=== PATIENT | female | born 1980 | race Caucasian/White ===

== ENCOUNTER 2020-09-30 21:30 | Emergency (ER) | payer OTHER, SELFPAY ==
--- NOTE | ~2020-09-30 | XR_ITS ---
EXAMINATION: XR wrist RT min 3V INDICATION: Right wrist pain, initial encounter TECHNIQUE: Four views of the right wrist are obtained. COMPARISON: 12/19/2018 FINDINGS: There is an acute, traumatic, closed, oblique fracture of the distal ulna. The fracture zapata s not appear to extend to the distal articular surface. Soft tissue swelling surrounds the fracture. No additional acute osseous abnormality is identified. IMPRESSION: 1. Acute fracture of the distal ulna. Reviewed, dictated and finalized at location A. GER VIDEO
[2020-09-30 21:31] VITALS: BP 130/94; PULSE 84; RESP 16; TEMP 36.9; O2SAT 100
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
--- NOTE | 2020-09-30 22:04 | PC.NURSE ---
right short arm volnar splint applied, pt nessa well. <3 sec cap refill after splint applied.
[2020-09-30 23:41] VITALS: BP 126/79; PULSE 87; RESP 16; TEMP 36.7; O2SAT 100
== END 2020-09-30 23:42 | disposition home or self-care (01) ==
PROVIDERS: Emergency Provider Emergency Medicine; PCP Emergency Medicine
DX: T40.411A Poisoning by fentanyl or fentanyl analogs, accidental (unintentional), initial encounter (principal); S52.691A Other fracture of lower end of right ulna, initial encounter for closed fracture; Y04.2XXA Assault by strike against or bumped into by another person, initial encounter
CPT/HCPCS: 29125; 73110; 99284

== ENCOUNTER 2020-10-04 22:07 | Emergency (ER) | payer OTHER, SELFPAY ==
[2020-10-04 22:07] VITALS: BP 124/90; PULSE 104; RESP 18; TEMP 36.8; O2SAT 100
--- NOTE | 2020-10-04 22:12 | ED_ITS ---
HPI - Overdose General Chief Complaint: Overdose Stated Complaint: OD-Fentanyl Time Seen by Provider: 10/04/20 22:12 Source: patient, EMS and RN notes reviewed History of Present Illness HPI Narrative: 40-year-old female presents to EMS for fentanyl overdose. Samara ent was found minimally responsive at a local motel, shallow respirations. Patient was given Narcan intranasally with response. Patient admits to snorting fentanyl. Denies any pain at this time. No suicidal or homicidal ideation. Related Data Allergies Allergy/AdvReac Type Severity Reaction Status Date / Time No Known Allergies Allergy Unverified 08/13/19 17:51 Review of Systems Review of Systems: Narrative: CONSTITUTIONAL: Denies fever, chills, or sweats. EYES: Denies visual changes, redness, or discharge. ENT: Denies rhinorrhea, congestion, sore throat, or otalgia. CARDIOVASCULAR: Denies chest pain, palpitations, or edema. RESPIRATORY: Denies cough or dyspnea. GASTROINTESTINAL: Denies abdominal pain, nausea, vomiting, or diarrhea. GENITOURINARY: Denies dysuria or hematuria. SKIN: Denies rash or itching. MUSCULOSKELETAL: Denies back pain, joint pain, or myalgia. NEUROLOGIC: Denies headache, numbness, dizziness, or weakness. PSYCHIATRIC: Denies anxiety or depression. Denies suicidal and homicidal ideati on All systems reviewed & are unremarkable except as noted in HPI and below (ROS) PMFSH Past Medical History Medical History Healthy adult Social History Social History Substance use: current Substance use type: opiates Other substance usage details: occasional Exam Narrative: Exam Narrative: GENERAL: Well-appearing, well-nourished, and in no acute distress. HEAD: Normocephalic, atraumatic. EYES: PERRLA and EOMI. ENT: Nares clear, no rhinorrhea or epistaxis. Mucous membranes moist. NECK: Supple. CHEST: Clear to auscultation. No respiratory distress. HEART: Tachycardia no murmur heard. Normal peripheral pulses. ABDOMEN: Soft, nontender, nondistended, normal active bowel sounds. EXTREMITIES: Normal range of motion. No edema. SKIN: Warm, dry, no rash. NEURO: No focal deficits. Alert and oriented x3. PSYCH: Normal mood and affect. Course Reevaluation(s) Reevaluation #1: 8812 -reevaluated patient, no new complaints. Counseled patient to discontinue use of fentanyl. Counseled patient to follow-up with her medical provider within 1 week. Vital Signs Vital signs: Vital Signs Temperature 36.8 C 10/04/20 22:07 Pulse Rate 104 H 10/04/20 22:07 Respiratory Rate 18 10/04/20 22:07 Blood Pressure 124/90 10/04/20 22:07 Pulse Oximetry 100 10/04/20 22:07 Temperature 36.8 C 10/04/20 22:07 Pulse Rate 91 10/05/20 00:20 Respiratory Rate 18 10/05/20 00:20 Blood Pressure 127/86 10/05/20 00:20 Pulse Oximetry 95 10/05/20 00:20 MDM - Overdose Medical Records Attestation: I reviewed the patient's medical records. Discharge Plan Discharge Clinical Impression: Opioid overdose Patient Disposition: Home, Self-Care Condition: Stable Instructions: Adult Overdose (ED) Follow-up/Referrals: Antoine Santana MD [Physician] - Time of Disposition: 23:44
[2020-10-05 00:20] VITALS: BP 127/86; PULSE 91; RESP 18; O2SAT 95
== END 2020-10-05 00:23 | disposition home or self-care (01) ==
PROVIDERS: Emergency Provider Emergency Medicine; PCP Emergency Medicine
DX: T40.411A Poisoning by fentanyl or fentanyl analogs, accidental (unintentional), initial encounter (principal)
CPT/HCPCS: 99281

== ENCOUNTER 2022-03-28 10:02 | Emergency (ER) | payer OTHER, SELFPAY ==
[2022-03-28 10:13] VITALS: BP 140/99; PULSE 95; RESP 16; TEMP 36.9; O2SAT 100
--- NOTE | 2022-03-28 11:01 | PC.NURSE ---
patient states that she cut her right pinky finger last night around 2200 while doing dishes. states she cleaned it with peroxide and placed a bandaid. states bled a lot. denies blood thinners. no active bleeding at this time. states she took a vicoprofen around 0730 this morning
--- NOTE | 2022-03-28 12:07 | ED.WOUNDLAC ---
HPI - Wound/Laceration General Chief Complaint: Wound/Laceration Stated Complaint: lac to right pinky Time Seen by Provider: 03/28/22 11:21 Source: patient Mode of arrival: ambulatory History of Present Illness HPI narrative: 41 y/o female presents to the ER today for complaints of laceration to right 5th finger. When I came in the room. She was leaning over in the chair, eyes closed and drooling. I had to say her name loudly several times to arouse her. She appears to be under the influence of opiates. She says that she took a pain pill prior to coming to the ER. She falls asleep a few times while I'm getting her history today. She has a small laceration to the finger that happened yesterday evening from a peice of broken glass. It is open to air and is not bleeding currently. Related Data Allergies Allergy/AdvReac Type Severity Reaction Status Date / Time No Known Allergies Allergy Unverified 03/28/22 10:59 Review of Systems Constitutional: Constitutional: Denies chills and Denies fever(s) ENT: Denies dizziness Cardiovascular: Cardiovascular: Reports no additional cardiovascular complaints and Denies chest pain Respiratory: Respiratory: Denies dyspnea Gastrointestinal: Gastrointestinal: Denies nausea and Denies vomiting Genitourinary: Genitourinary: Reports no additional female genitourinary complaints Musculoskeletal: Musculoskeletal: Reports no additional musculoskeletal complaints Integumentary/Breasts: Skin/Breast: Reports as per HPI Neurologic: Reports as per HPI Psychiatric: Psychiatric: Reports no additional psychiatric complaints Endocrine: Endocrine: Reports no additional endocrine complaints Hematologic/Lymphatic: Hematologic/Lymphatic: Reports no additional hematologic/lymphatic complaints Allergic/Immunologic: Allergic/Immunologic: Reports no additional allergic/immunologic complaints [facility] Past Medical History Medical History Healthy adult Social History Social History Substance use: current Substance use type: opiates Other substance usage details: occasional Exam Const: General: no acute distress Other: very drowsy, arouses to voice, under the influence of substance, admits to opiates HENMT: Head: normal to inspection Eyes: Conjunctivae: conjunctivae normal and conjunctival abnormality Pupils: Equal, round and reactive pupils present Neck: Neck: normal visual inspection Chest: Chest palpation & inspection: normal inspection of the chest Resp: Effort & Inspection: normal respiratory effort Auscultation: clear to auscultation bilaterally Cardio: Rate: regular rate GI: GI Palp: Yes Soft to palpation, No Tenderness to palpation present (GI) and No Guarding due to palpation present (GI) Back/Spine/Pelvis: Back: no CVA tenderness Skin: General skin exam: normal color Other: small superficial lac to right 5th finger not requiring sutures or repair Neuro: General: patient oriented x3 and moves all extremities Extrem: General: normal to inspection and no edema Course Course Emergency Course: Pt is wanting to sign out AMA. She is refusing Narcan. She is signing out AMA Vital Signs Vital signs: Vital Signs Temperature 36.9 C 03/28/22 10:13 Pulse Rate 95 03/28/22 10:13 Respiratory Rate 16 03/28/22 10:13 Blood Pressure 140/99 H 03/28/22 10:13 Pulse Oximetry 100 03/28/22 10:13 Temperature 36.9 C 03/28/22 10:13 Pulse Rate 95 03/28/22 10:13 Respiratory Rate 16 03/28/22 10:13 Blood Pressure 140/99 H 03/28/22 10:13 Pulse Oximetry 100 03/28/22 10:13 MDM - Wound/Laceration Differential Diagnosis Differential diagnosis: Likely laceration, abscess and abrasion Discharge Plan Discharge Clinical Impression: Laceration, Opiate misuse Patient Disposition: Left Against Medical Advice Condition: Stable Follow-up/
--- NOTE | 2022-03-28 12:18 | PC.NURSE ---
during ERP assessment, she states that patient was sitting up in the chair drooling and falling asleep. requesting patient be placed on monitor technician and given narcan. patient aware and taken to room 6 at this time
[2022-03-28 12:20] VITALS: BP 141/92; PULSE 78; RESP 16; O2SAT 98
--- NOTE | 2022-03-28 12:28 | PC.NURSE ---
went in to place IV and attain Labs. pt unwilling to have labs, drawn, IV placed. pt refused Narcan AMA form signed and placed in chart provider and public health professor aware pt has left from the dept
== END 2022-03-28 12:33 | disposition left against medical advice (07) ==
PROVIDERS: Emergency Provider Nurse Practitioner Family; PCP Emergency Medicine
DX: S61.216A Laceration without foreign body of right little finger without damage to nail, initial encounter (principal); F11.90 Opioid use, unspecified, uncomplicated; W25.XXXA Contact with sharp glass, initial encounter
CPT/HCPCS: 99284

== ENCOUNTER 2022-04-03 07:57 | Emergency (ER) | payer OTHER, SELFPAY ==
--- NOTE | ~2022-04-03 | XR_ITS ---
EXAMINATION: XR hand RT min 3V DATE: 04/03/2022 09:10 INDICATION: Right hand dog bite. TECHNIQUE: 3 views of right hand were obtained. COMPARISON: Right wrist radiographs 09/30/2020 FINDINGS: There is a comminuted fracture of neck of second metacarpal. The main distal fracture fragm ent demonstrates 2 mm ulnar displacement. There is a laceration in this area with soft tissue swellin g. There is an old healed fracture of distal ulna. Joint spaces are normal. IMPRESSION: 1. Comminuted fracture of neck of second metacarpal. Reviewed, dictated and finalized at location B.
[2022-04-03 08:01] VITALS: BP 141/85; PULSE 112; RESP 18; TEMP 37.1; O2SAT 99
--- NOTE | 2022-04-03 08:51 | ED.ANIMALBIT ---
HPI - Animal Bite General Chief Complaint: Animal Bite <Rikki Alvarez APRN - Last Filed: 04/03/22 10:09> Stated Complaint: dog bite (hand) <Rikki Alvarez APRN - Last Filed: 04/03/22 10:09> Time Seen by Provider: 04/03/22 08:44 <Rikki Alvarez APRN - Last Filed: 04/03/22 10:09> History of Present Illness HPI narrative: 41-year-old female presents to the emergency room for evaluation of a dog bite to the right hand. Patient states that a known dog bit her right hand. Patient states the attack was unprovoked. Patient states the dog is up-to-date on its rabies status. <Rikki Alvarez APRN - Last Filed: 04/03/22 10:09> Related Data Allergies/Adverse Reactions: Allergies Allergy/AdvReac Type Severity Reaction Status Date / Time No Known Allergies Allergy Verified 04/03/22 08:10 <Rikki Alvarez APRN - Last Filed: 04/03/22 10:09> Review of Systems Review of Systems: CONSTITUTIONAL: Denies fever, chills, or sweats. EYES: Denies visual changes, redness, or discharge. ENT: Denies rhinorrhea, congestion, sore throat, or otalgia. CARDIOVASCULAR: Denies chest pain, palpitations, or edema. RESPIRATORY: Denies cough or dyspnea. GASTROINTESTINAL: Denies abdominal pain, nausea, vomiting, or diarrhea. GENITOURINARY: Denies dysuria or hematuria. SKIN: Reports bite wounds to right hand MUSCULOSKELETAL: Reports pain to right hand NEUROLOGIC: Denies headache, numbness, dizziness, or weakness. PSYCHIATRIC: Denies anxiety or depression. <Rikki Alvarez APRN - Last Filed: 04/03/22 10:09> [facility] Past Medical History Medical History: Medical History Healthy adult <Rikki Alvarez APRN - Last Filed: 04/03/22 10:09> Social History Social History: Social History Substance use: current Substance use type: opiates Other substance usage details: occasional <Rikki Alvarez APRN - Last Filed: 04/03/22 10:09> Exam Narrative: GENERAL: Well-appearing, well-nourished, and in no acute distress. HEAD: Normocephalic, atraumatic. EYES: PERRLA and EOMI. CHEST: Clear to auscultation. No respiratory distress. No wheezes rales or rhonchi HEART: Regular rate and rhythm. No murmur heard. Normal peripheral pulses. ABDOMEN: Soft, nontender, nondistended, normal active bowel sounds. EXTREMITIES: Right hand: 3 puncture wounds to the dorsum, 1 puncture wound to the palmar side, soft tissue swelling and erythema surrounding bites; +TTP to 2nd metacarpal SKIN: Warm, dry, no rash. NEURO: No focal deficits. Alert and oriented x3. PSYCH: Normal mood and affect. <Rikki Alvarez, LI - Last Filed: 04/03/22 10:09> Course [employer]/PA Physician Supervision For this patient encounter, I reviewed the [employer] or PA documentation, treatment plan, and medical decision making; and I had [id number] time with this patient. <Tom Bergman MD - Last Filed: 04/03/22 09:24> Vital Signs Vital signs: Vital Signs Temperature 37.1 C 04/03/22 08:01 Pulse Rate 112 H 04/03/22 08:01 Respiratory Rate 18 04/03/22 08:01 Blood Pressure 141/85 H 04/03/22 08:01 Pulse Oximetry 99 04/03/22 08:01 Temperature 37.1 C 04/03/22 08:01 Pulse Rate 89 04/03/22 09:35 Respiratory Rate 20 04/03/22 09:35 Blood Pressure 141/93 H 04/03/22 09:35 Pulse Oximetry 100 04/03/22 09:35 <Rikki Alvarez APRN - Last Filed: 04/03/22 10:09> Vital Signs Temperature 37.1 C 04/03/22 08:01 Pulse Rate 112 H 04/03/22 08:01 Respiratory Rate 18 04/03/22 08:01 Blood Pressure 141/85 H 04/03/22 08:01 Pulse Oximetry 99 04/03/22 08:01 Temperature 37.1 C 04/03/22 08:01 Pulse Rate 89 04/03/22 09:35 Respiratory Rate 20 04/03/22 09:35 Blood Pressure 141/93 H 04/03/22 09:35 Pulse Oximetry 100 04/03/22 09:35 <Tom Bergman MD - Last Filed: 04/03/22 09:24> MDM - Animal
[2022-04-03] MEDS: KETOROLAC (*BKC) 60 MG/2 ML VIAL IM (08:52)
[2022-04-03] MEDS: ONDANSETRON INJ 4 MG/2 ML VIAL IV PUSH (09:30)
[2022-04-03] MEDS: MORPHINE SULFATE (*CRX) 4 MG/ML INJ IV PUSH (09:30)
[2022-04-03 09:35] VITALS: BP 141/93; PULSE 89; RESP 20; O2SAT 100
[2022-04-03] MEDS: ceFAZolin 2 GM/D5W 50 ML 2 GM/50 ML BAG IVPB (10:00)
[2022-04-03 10:02] LABS: Basophils Absolute Auto 0.1 K/mm3 (0.0-0.1); Basophils Percent Auto 0.8 % (0.2-1.2); Eosinophils Absolute Auto 0.1 K/mm3 (0-0.3); Eosinophils Percent Auto 1.3 % (0-4.4); Hematocrit 42.6 % (37.0-47.0); Hemoglobin 14.3 g/dL (12.0-15.0); Immature Granulocyte Absolute 0.01 K/mm3 (0.00-0.031); Immature Granulocyte Percent A 0.2 % (0-0.5); Lymphocytes Absolute Auto 1.15 K/mm3 (0.9-3.2); Lymphocytes Percent Auto 18.1 % (18.3-44.2); Mean Corpuscular HGB Conc 33.6 g/dl (32-36); Mean Corpuscular Hemoglobin 30.7 pg (26-34); Mean Corpuscular Volume 91.4 fl (80-100); Mean Platelet Volume 11.5 fl (7.4-10.4); Monocytes Absolute Auto 0.8 K/mm3 (0.1-0.6); Monocytes Percent Auto 11.9 % (2.6-8.5); Neutrophils Absolute Auto 4.3 K/mm3 (1.3-6.7); Neutrophils Percent Auto 67.7 % (45.5-73.1); Platelet Count Result 293 k/mm3 (150-375); Red Blood Count 4.66 M/mm3 (4.2-5.4); Red Cell Distribution Width 12.4 % (11.5-14.5); White Blood Count 6.4 K/mm3 (4.5-10.0)
[2022-04-03 10:07] LABS: Alanine Aminotransferase 34 U/L (4-35); Albumin Level 4.1 g/dL (3.5-5.1); Alkaline Phosphatase 79 U/L (38-126); Anion Gap 7 mmol/L (8-16); Aspartate Amino Transferase 37 U/L (14-36); Bilirubin,Total 0.3 mg/dL (0.2-1.3); Blood Urea Nitrogen 7 mg/dL (7-17); Calcium 8.9 mg/dL (8.4-10.2); Carbon Dioxide 26 mmol/L (22-30); Chloride 107 mmol/L (98-107); Estimated CRCL calculation 77 ml/min; Estimated Glomerular Filt Rate > 60; Glucose 107 mg/dL (65-110); Potassium 3.6 mmol/L (3.4-5.0); Sodium 140 mmol/L (137-145)
== END 2022-04-03 10:55 | disposition home or self-care (01) ==
PROVIDERS: Emergency Provider Nurse Practitioner Family
DX: S62.330A Displaced fracture of neck of second metacarpal bone, right hand, initial encounter for closed fracture (principal); S61.451A Open bite of right hand, initial encounter; W54.0XXA Bitten by dog, initial encounter
CPT/HCPCS: 29125; 36415; 73130; 80053; 85025; 96365; 96372; 96375; 99284; J0690; J1885; J2270; J2405

== ENCOUNTER 2022-04-11 01:41 | Day surgery (SDC) | payer OTHER, SELFPAY ==
[2022-04-10 08:09] VITALS: BMI 20.7
--- NOTE | 2022-04-10 08:16 | SUR.PREOP ---
Report to the Outpatient Waiting Room, entrance under the green pavilion located off [facility], at time 830 on date 04/11 OR Time: 1030. - You and your visitor will be asked a series of questions to screen for COVID 19 for your protection. - Only one visitor is allowed at this time. - The patient visitor is requested to leave or wait in car when not with patient. - A mask is required within the hospital. Patients may have clear liquids (water, carbonated beverages, clear teas, apple juice) until 3 hours prior to surgery with a maximum of 20 ounces. - No food from midnight until time of surgery Take the following medications with a SIP of water the morning of surgery: antibiotic as prescribed Medications to discontinue per physician ___NA Date to take last dose__NA Please no make-up, nail marshallese, hairspray, perfume, deodorant, or body powder the day of surgery. No jewelry (including any body piercings) or valuables the day of surgery, leave them at home. Please take a shower or bath the night before, or the morning of, surgery with an antibacterial soap. Wear comfortable, loose fitting clothing. Children are encouraged to wear pajamas. - Jewelry must be removed prior to entering the operating room. Rings and piercings that are not removed may be cut off. - The hospital will not accept responsibility for valuables. - Please leave all valuables, including medications, at home the day of surgery. If you are going home after surgery, a licensed septic pump truck driver must drive you home. - NO public transportation without another adult. - We recommend that an adult stay with you for 24 hours following discharge. - We also recommend that you do not drive, make important decision, drink alcoholic beverages, or take any drugs that were not prescribed by your health care provider for at least 24 hours after your discharge time. Follow any additional instructions given to you from your surgeon. If you or anyone in your household have experienced Covid symptoms in the past week, please notify your surgeon or the nurse liaison at the phone number below for possible testing. Telephone instructions given to patient and asked if any additional questions and then verbalized understanding. Patient advised to call surgeon office or pre surgery nurse liaison [phone] if any additional questions.
[2022-04-11] VITALS (8 sets, daily range): BP systolic 104–145; BP diastolic 68–96; PULSE 64–96; RESP 14–20; TEMP 36.2; O2SAT 100
--- NOTE | ~2022-04-11 | XR_ITS ---
EXAMINATION: XR surgery orthopedic DATE: 04/11/2022 12:12 INDICATION: Right second metacarpal fracture TECHNIQUE: 3 fluoroscopic images of the right hand were obtained during procedure performed by Dr. Cardona. Radiologist was not present for the imaging or procedure. The amount of fluoroscopy time used du ring this procedure was 2.0 minutes. COMPARISON: None. FINDINGS: Interval reduction and fixation of a mildly comminuted fractures at the distal neck of the right seco nd metacarpal. The fracture is fixed with a proximal to distal directed pin which is anchored dorsall y at the proximal metaphysis. Alignment appears near-anatomic. No other fractures identified. Joint s paces are normal. IMPRESSION: 1. Near-anatomic alignment post reduction and pin fixation of a mildly comminuted fracture at the dis manolo neck of the right fifth metacarpal. Reviewed, dictated and finalized at location A. IMPRESSION: 1. Near-anatomic alignment post reduction and pin fixation of a mildly comminut ed fracture at the distal neck of the right fifth metacarpal.
--- NOTE | 2022-04-11 07:15 | WPDHPUPDATE1 ---
History and Physical Update Update Date/Time: 04/11/22 07:15 History and Physical has been reviewed, including an updated exam of the patient. There are NO changes in the patient's condition. Risks, benefits, and alternatives have been discussed and questions answered. Patient agrees to proceed with procedure.
--- NOTE | 2022-04-11 09:18 | P.PNAN_ITS ---
Anes - Initial Pre Proc Eval Procedure: Operation Date: 04/11/22 10:30 Proposed Procedures p Closed, Possible Open Reduction Internal Fixation Right Second Metacarpal - Dima Slater MD Date/Time: 04/11/22 09:18 Surgeon: Dima Slater MD Pre Op Diagnosis: right 2nd metacarpal fx Patient Data Age: 41 Gender: F Height: 1.7 m Weight: 60 kg Allergies Allergy/AdvReac Type Severity Reaction Status Date / Time No Known Allergies Allergy Verified 04/11/22 09:03 Home Medications Medication Instructions Recorded Confirmed Type amoxicillin-pot clavulanate 1 tablet PO Q12H #14 tablet 04/03/22 04/11/22 Rx Patient hx anesthesia problems: none Family hx anesthesia problems: none Results Review: All pre-operative results and documents have been reviewed as part of the pre-operative evaluation. [facility], [facility] Past Medical History Medical History Healthy adult Smoker Surgical History Surgical History (Updated 04/11/22 @ 09:20 by Chester Marquez MD) H/O breast augmentation Social History Social History Years smoked: 4 Smoking status: Light tobacco smoker Tobacco type: cigarettes Substance use: current Substance use type: opiates Other substance usage details: occasional Living arrangements: alone Spiritual care concerns: No Anes - Eval Final PreProcedure Day of Procedure 04/11/22 09:18 Patient weight: normal Heart: regular rate and rhythm Lungs: clear to auscultation Airway: Mallampati scale class II Neurological: alert and oriented Last oral intake: >/= 8 hours ASA classification: II Emergent: no Anesthetic plan: proceed Anesthesia type and monitoring: general LMA and standard monitoring Results Review: All pre-operative results and documents have been reviewed as part of the pre-operative evaluation. Informed Consent: The patient's anesthetic plan and its attendant risks and benefits were discussed with the patient/family/POA. Questions were solicited and answers provided to the satisfaction of the patient/family/POA.
[2022-04-11] MEDS: ACETAMINOPHEN 500 MG TABLET 1000 MG PO (09:26)
[2022-04-11] MEDS: LACTATED RINGERS 1,000 ML 30 ML IV CONT ×2 (09:30→12:09)
[2022-04-11] MEDS: KETOROLAC 15 MG/ML VIAL (*BKC) IV PUSH (09:33)
[2022-04-11] MEDS: ceFAZolin 2 GM/D5W 50 ML 2 GM/50 ML BAG IVPB (10:30)
[2022-04-11] MEDS: LIDO 1%/EPINEPHRINE 1:100,000 50 ML VIAL INFILTRATE (11:14)
[2022-04-11] MEDS: BUPIVACAINE HCL 0.5% PF 30 ML VIAL INFILTRATE (11:41)
--- NOTE | 2022-04-11 12:34 | W.PM.PROC2 ---
Procedure Note - Detailed Date of Procedure 04/11/22 Pre-op Diagnosis right 2nd metacarpal fx Post-op Diagnosis Same Procedure Performed Closed reduction and internal fixation of right 2nd metacarpal shaft fracture with 1.6 mm Biomet fixation device Surgeon Dima Slater MD Director Data Processing Daniel Anesthesia General Findings Minimal comminution with clinical osteoporosis Description of Procedure The right index finger marked on the patient in holding. She was taken to the operating room where she was placed supine on the operating table. She was given general endotracheal anesthesia in the right upper extremity and was prepped and draped in usual fashion. A tourniquet was applied to the arm. The hand was on the hand table and was imaged to identify the fracture site and its condition. Attempted reduction was done and was insufficiently successful. The site for access of the BioMet internal fixation device was imaged and locally infiltrated. The extremity was exsanguinated with an Gigi wrap and the tourniquet inflated to 250 mmHg. A small incision was made for access of the introducer. The periosteum was exposed at this point. Introducer was passed into the medullary canal. The 1.6 mm zechariah was inserted proximal to distal. The cortex in this area seemed relatively soft and the pin advanced with almost no resistance distally across the fracture line. We were able to reposition the distal for fragment satisfactorily and the pin was advanced distally to an appropriate endpoint. The pin rotated more than usual. The pin proximally was bent using the Biomet kit Salas. The pin was cut and the metal sleeve applied. I had difficulty in achieving fixation with that. We bent the pin to 3 different directions trying to settle the sleeve into a satisfactory position. Ultimately it seemed that we had good positioning but we see on the final films that the sleeve is probably not in an effective position. It did seem clinically stable at the time. The sleeve in end was cut and again we had difficulty maintaining the position of the sleeve and eventually used an alternative sleeve which comes with the kit. And then we had difficulty applying the plastic cap that protects the skin from the head of this and also helps hold them together. We elected to bend the cap over and placed a suture through it and to periosteum that was done with 4-0 Vicryl. The skin was then closed with intradermal 4-0 Vicryl a couple of sites and 5 0 nylon vertical mattress sutures Estimated Blood Loss 2 Tourniquet Time 57 Drains No Packing No Pathology None sent Condition Stable Disposition PACU
== END 2022-04-11 13:55 | disposition home or self-care (01) ==
PROVIDERS: PCP Emergency Medicine; Visit Provider Plastic Surgery
PROC: (CPT 26615; principal; 2022-04-11 10:30)
DX: S62.320A Displaced fracture of shaft of second metacarpal bone, right hand, initial encounter for closed fracture (principal); W54.0XXA Bitten by dog, initial encounter; F17.210 Nicotine dependence, cigarettes, uncomplicated; F11.90 Opioid use, unspecified, uncomplicated
CPT/HCPCS: 26615; A9270; C1713; J0690; J1100; J1200; J1885; J2250; J2405; J2704; J3010; J7120

== ENCOUNTER 2022-05-23 17:57 | Outpatient (CLI) | payer OTHER, SELFPAY ==
--- NOTE | ~2022-05-23 | XR_ITS ---
EXAMINATION: XR hand RT min 3V DATE: 05/23/2022 18:22 INDICATION: Right second metacarpal fracture status post reduction. TECHNIQUE: 3 views of right hand were obtained. COMPARISON: Right hand radiographs 04/03/2022 FINDINGS: There is an oblique fracture of neck of second metacarpal. The distal fracture fragment dem onstrates 3 mm ulnar displacement, 3 mm dorsal displacement, 13 degrees ulnar angulation, and impacti on. Fixation is seen with a pin. Callus formation is noted. There is hyperextension of third proximal interphalangeal joint. Joint spaces are normal. IMPRESSION: 1. Healing oblique fracture of neck of second metacarpal with fixation. Reviewed, dictated and finalized at location A.
== END 2022-05-23 17:58 | disposition home or self-care (01) ==
PROVIDERS: Visit Provider Plastic Surgery
DX: S62.330D Displaced fracture of neck of second metacarpal bone, right hand, subsequent encounter for fracture with routine healing (principal); X58.XXXD Exposure to other specified factors, subsequent encounter
CPT/HCPCS: 73130

== ENCOUNTER 2022-05-29 02:48 | Day surgery (SDC) | payer OTHER, SELFPAY ==
[2022-05-27 14:10] VITALS: BMI 20.7
--- NOTE | 2022-05-27 14:25 | PC.NURSE ---
Report to the Outpatient Waiting Room, entrance under the green pavilion located off [facility], at time __6:15AM on date ___05/29/22____. OR Time: ___8:15AM . - You and your visitor will be asked a series of questions to screen for COVID 19 for your protection. - Only one visitor is allowed at this time. - The patient visitor is requested to leave or wait in car when not with patient. - A mask is required within the hospital. Patients may have clear liquids (water, carbonated beverages, clear teas, apple juice) until 3 hours prior to surgery with a maximum of 20 ounces. - No food from midnight until time of surgery Take the following medications with a SIP of water the morning of surgery: __NONE Medications to discontinue per physician ___HOLD ALL VITAMINS/SUPPLEMENTS STARTING NOW (05/27/22) Please no make-up, nail kyrgyz, hairspray, perfume, deodorant, or body powder the day of surgery. No jewelry (including any body piercings) or valuables the day of surgery, leave them at home. Please take a shower or bath the night before, or the morning of, surgery with an antibacterial soap. Wear comfortable, loose fitting clothing. Children are encouraged to wear pajamas. - Jewelry must be removed prior to entering the operating room. Rings and piercings that are not removed may be cut off. - The hospital will not accept responsibility for valuables. - Please leave all valuables, including medications, at home the day of surgery. If you are going home after surgery, a licensed armor reconnaissance vehicle driver must drive you home. - NO public transportation without another adult. - We recommend that an adult stay with you for 24 hours following discharge. - We also recommend that you do not drive, make important decision, drink alcoholic beverages, or take any drugs that were not prescribed by your health care provider for at least 24 hours after your discharge time. Follow any additional instructions given to you from your surgeon. If you or anyone in your household have experienced Covid symptoms in the past week, please notify your surgeon or the nurse liaison at the phone number below for possible testing. Telephone instructions given to __PATIENT and asked if any additional questions and then verbalized understanding. Patient advised to call surgeon office or pre surgery nurse liaison [phone] if any additional questions.
--- NOTE | ~2022-05-29 | XR_ITS ---
EXAMINATION: XR surgery orthopedic DATE: 05/29/2022 09:04 INDICATION: Fixation wire removal from the right second metacarpal TECHNIQUE: A single fluoroscopic image of the right hand centered at the metacarpals was obtained dur ing procedure performed by Dr. Slater. Radiologist was not present for the imaging or procedure. The a mount of fluoroscopy time used during this procedure was 0.1 minutes. COMPARISON: 05/23/2022 FINDINGS: Interval removal of the previously seen fixation pin with no retained radiopaque foreign bodies. Rela tively advanced healing of a fracture at the neck of the right second metacarpal and with solidly mony dging callus formation but with still some discernible lucency along the fracture plane. The fracture is healing with 25 degrees ulnar angulation and 2-3 mm ulnar displacement. No other fractures identi fied. There is some widening of the second metacarpophalangeal joint space which could be related to traction from the digit. Remaining joint spaces are normal. IMPRESSION: 1. Fluoroscopy utilized during a fixation wire removal at the second metacarpal. 2. 25 degrees ulnar angulation of a healing fracture at the neck of the right second metacarpal. Reviewed, dictated and finalized at location A. IMPRESSION: 1. Fluoroscopy utilized during a fixation wire removal at the second metacarpal . 2. 25 degrees ulnar angulation of a healing fracture at the neck of the right s econd metacarpal.
[2022-05-29 06:45] VITALS: BP 130/96; PULSE 93; RESP 18; TEMP 36.6; O2SAT 100
[2022-05-29] MEDS: LACTATED RINGERS 1,000 ML 30 ML IV CONT ×2 (07:00→09:06)
--- NOTE | 2022-05-29 07:05 | P.PNAN_ITS ---
Anes - Initial Pre Proc Eval Procedure: Operation Date: 05/29/22 08:30 Proposed Procedures p Removal Fixation Wire Right Second Metacarpal - Dima Slater MD Date/Time: 05/29/22 07:05 Surgeon: Dima Slater MD Pre Op Diagnosis: hx right 2nd matacarpal shaft fx Patient Data Age: 41 Gender: F Height: 1.7 m Weight: 60 kg Allergies Allergy/AdvReac Type Severity Reaction Status Date / Time No Known Allergies Allergy Verified 05/27/22 14:07 Home Medications Medication Instructions Recorded Confirmed Type multivit-iron 18 mg-folic acid 400 1 tablet PO DAILY 05/27/22 05/27/22 History mcg-calcium 500 mg-minerals tablet (Daily Multiple For Women) Patient hx anesthesia problems: none Family hx anesthesia problems: none Results Review: All pre-operative results and documents have been reviewed as part of the pre- operative evaluation. PMF Past Medical History Medical History Smoker Surgical History Surgical History H/O breast augmentation Social History Social History Smoking packs per day: 1 Smoking cigarettes per day: 20.0 Years smoked: 10 Smoking pack-years: 10.00 Smoking status: Current every day smoker Tobacco type: cigarettes Additional smoking assessment comments: 1/2 PACK/DAY CURRENTLY Alcohol intake: former Alcohol use details: NO ALCOHOL X 10 YEARS AGO Substance use: former Substance use type: crack/cocaine Other substance usage details: occasional Last use: 2011 Living arrangements: with friend(s) Additional living arrangements comments: FRIEND Spiritual care concerns: No Anes - Eval Final PreProcedure Day of Procedure 05/29/22 07:05 Patient weight: normal Heart: regular rate and rhythm Lungs: decreased breath sounds Airway: Mallampati scale class II Neurological: alert and oriented Last oral intake: >/= 8 hours ASA classification: II Emergent: no Anesthetic plan: proceed Anesthesia type and monitoring: general GIVS and standard monitoring Results Review: All pre-operative results and documents have been reviewed as part of the pre- operative evaluation. Informed Consent: The patient's anesthetic plan and its attendant risks and benefits were discussed with the patient/family/POA. Questions were solicited and answers provided to the satisfaction of the patient/family/POA.
--- NOTE | 2022-05-29 07:09 | WPDHPUPDATE1 ---
History and Physical Update Update Date/Time: 05/29/22 07:09 History and Physical has been reviewed, including an updated exam of the patient. There are NO changes in the patient's condition. Risks, benefits, and alternatives have been discussed and questions answered. Patient agrees to proceed with procedure.
[2022-05-29] MEDS: ACETAMINOPHEN 500 MG TABLET 1000 MG PO (07:15)
[2022-05-29] MEDS: levoFLOXacin 500 MG/D5W 100 ML 500 MG/100 ML BAG 100 MG IVPB (07:30)
[2022-05-29] MEDS: LIDOCAINE/EPINEPHRINE 0.5%/1:200,000 50 ML VIAL INFILTRATE (09:00)
[2022-05-29] MEDS: KETOROLAC 15 MG/ML VIAL (*BKC) IV PUSH (09:01)
[2022-05-29 09:06] VITALS: BP 107/80; PULSE 76; RESP 14; O2SAT 100
--- NOTE | 2022-05-29 09:20 | W.PM.PROC2 ---
Procedure Note - Detailed Date of Procedure 05/29/22 Pre-op Diagnosis hx right 2nd matacarpal shaft fx Post-op Diagnosis Same Procedure Performed Planned removal of Biomet fixation device right 5th metacarpal Surgeon Dima Slater MD Anesthesia MAC Indications Radiographic healing of fracture with excellent range of motion Description of Procedure The proximal end of the fixation device was identified easily on the right hand and the holding area and was marked. Patient demonstrated excellent range of motion. She was taken to the operating room and placed supine on the operating table. Was given intravenous sedation. The right extremity was prepped and draped usual fashion. Time-out was held and confirmed. The site was again identified and marked for incision. This area was infiltrated with 1 % lidocaine with epinephrine. The extremity was exsanguinated tourniquet inflated to 250 mmHg. The incision was made longitudinally as marked and dissection was carried through the scar tissue in this area. The extensor tendon was not visualized as we initially dissected. No cutaneous nerves were identified. The plastic cap and metal sleeve were identified readily and removed without difficulty. Scarred tissue was removed in this immediate area and the proximal end of the fixation pin was identified. This was grasped with the large needle douglas and advanced proximally. It was removed without difficulty. We took the opportunity 2 passively maximally flex the metacarpophalangeal joint.. The wound was closed intradermal 4-0 Monocryl sutures. The tourniquet was released and a soft bandage with Gigi wrap was applied. Estimated Blood Loss 1 Pathology None sent Complications No immediate complications Condition Stable Disposition Same day
[2022-05-29 09:35] VITALS: BP 104/70; PULSE 67; RESP 12; O2SAT 100
[2022-05-29 10:05] VITALS: BP 113/90; PULSE 78; RESP 18
[2022-05-29 10:21] VITALS: BP 134/84; PULSE 80; RESP 18
== END 2022-05-29 10:39 | disposition home or self-care (01) ==
PROVIDERS: PCP Emergency Medicine; Visit Provider Plastic Surgery
PROC: (CPT 20694; principal; 2022-05-29 08:30)
DX: Z47.2 Encounter for removal of internal fixation device (principal); S62.320D Displaced fracture of shaft of second metacarpal bone, right hand, subsequent encounter for fracture with routine healing; F17.210 Nicotine dependence, cigarettes, uncomplicated
CPT/HCPCS: 20680; A9270; J1200; J1885; J1956; J2250; J2704; J3010; J7120

== ENCOUNTER 2022-09-22 16:50 | Emergency (ER) | payer OTHER, SELFPAY ==
[2022-09-22 17:01] VITALS: BP 153/97; PULSE 96; RESP 20; TEMP 36.7; O2SAT 100
== END 2022-09-23 03:45 | disposition left against medical advice (07) ==
PROVIDERS: PCP Emergency Medicine
DX: R51.9 Headache, unspecified (principal)
CPT/HCPCS: 99199

== ENCOUNTER 2023-12-31 22:19 | Emergency (ER) | payer OTHER, SELFPAY ==
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
--- NOTE | ~2023-12-31 | CT_ITS ---
Noncontrast CT scan of the cervical spine Technique: Multiple contiguous axial [address] images of the cervical spine were obtained and rec onstructed in 2D sagittal and coronal planes on the acquisition scanner. Dose reduction technique was used on this scan by utilizing automated exposure control, adjustment of the mA and/or kV according to patient size. The dose-length product (DLP) was 201.16 mGy-cm. Clinical History: Pain Findings: No fractures or dislocations. There is moderate degenerative disc narrowing at C4-C5. Ther e is bilateral neural foraminal narrowing at C4-C5, with disc osteophyte complex. There is probable l eft neural foraminal narrowing at C5-C6 with disc osteophyte complex. No prevertebral soft tissue swe lling. Impression: No fracture or subluxation of the cervical spine. Reviewed, dictated and finalized at [facility]. 

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
[2023-12-31 22:26] VITALS: BP 152/97; PULSE 94; RESP 20; TEMP 36.4; O2SAT 98
--- NOTE | 2023-12-31 23:33 | PC.NURSE ---
Pt declined to provide a urine sample for test, pt states she will sign paperwork if imaging is needed.
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
[2024-01-01 02:27] VITALS: BP 138/76; PULSE 68; RESP 15; TEMP 36.6; O2SAT 100
== END 2024-01-01 02:29 | disposition home or self-care (01) ==
PROVIDERS: Emergency Provider Physician Assistant; PCP Emergency Medicine
DX: M54.2 Cervicalgia (principal); M54.50 Low back pain, unspecified; V43.62XA Car passenger injured in collision with other type car in traffic accident, initial encounter; F17.210 Nicotine dependence, cigarettes, uncomplicated
CPT/HCPCS: 70450; 72125; 72131; 99284

== ENCOUNTER 2025-07-11 23:13 | Emergency (ER) | payer OTHER, SELFPAY ==
--- NOTE | ~2025-07-11 | XR_ITS ---
XR forearm RT 2V 07/12/2025 02:01 Indication: Dog bite right forearm Procedure: 2 views right forearm Comparison: 12/19/2018 Findings: There is a small focal area of soft tissue swelling overlying the mid forearm with associat ed soft tissue gas, consistent with laceration. No underlying foreign body. No acute fracture or trau matic malalignment. Impression: 1: No acute fracture. No evidence for foreign body. Reviewed, dictated and finalized at location A. Impression: 1: No acute fracture. No evidence for foreign body.
[2025-07-11 23:15] VITALS: BP 141/96; PULSE 102; RESP 16; TEMP 36.6; O2SAT 99
--- OUTSIDE RECORDS SUMMARY | 2025-07-11 23:15 | XMS_ITS | Clinical Summary ---
Author Organization [facility] Address [address] [place] [address] Care Team Providers Care Sorter Lumber Straightener Name Role Phone Unavailable Primary Care Provider Unavailabl e Source Comments [facility],non-owned Affiliates and Associated Physician Practices is amultiple site organization consisting of ambulatory clinics and hospital sitesin [place], [place], [place] and [place]. This disclosure is being madepursuant to the Care Everywhere program and may not contain all information available regarding this patient. Last updated 08/21/18.[employer] [facility] Allergies No known active allergies Active Problems Problem Noted Date Diagnosed Date Other psychoactive substance abuse, uncomplicate d 03/23/2014 Acute respiratory failure 03/23/2014 Gastrointestinal hemorrhage 03/23/2014 Other injury of unspecified body region, initial encounter 03/23/2014 Major depressive disorder, single episode 2013 Social History Tobacco Use Types Packs/Day Years Used Date Smoking Tobacco: Every Day Cigarettes 0.5 10 Tobacco Cessation:Ready to Q uit: Not Asked; Counseling Given: Not Answered Alcohol Use Standard Drinks/Week Comments Never 0 (1 standard drink = 0.6 oz pur e alcohol) Comments No Sex and Gender Information Value Date Recorded Sex Assigned at Not on file 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 Gender Identity Not on file Sexual Orientation Not on file Last Filed Vital Signs Vital Sign Reading Time Taken Comments Blood Pressure 152/107 04/18/2024 8:58 PM CDT Pulse 92 04/18/2024 8:58 PM CDT Temperature 36.3 C (97.3 F) 04/18/2024 8:58 PM CDT Respiratory Rate 16 04/18/2024 8:58 PM CDT Oxygen Saturation 97% 04/18/2024 8:58 PM CDT Inhaled Oxygen Concentration - - Weight 63.5 kg (140 lb) 04/18/2024 8:58 PM CDT Height 170.2 cm (5' 7) 04/18/2024 8:58 PM CDT Body Mass Index 21.93 04/18/2024 8:58 PM CDT Plan of Treatment Health Maintenance Due Date Last Done Comments LIPID TESTING 1981 MAMMOGRAM 1981 HIV SCREENING 1996 HEPATITIS C SCREENING 08/01/1999 DTAP/TDAP/TD VACCINES (1 - Tdap) 2000 HEPATITIS B VACCINE (1 of 3 - 19+ 3-dose series) 2000 PNEUMOCOCCAL VACCINE (1 of 2 - PCV) 2000 PAP SMEAR 2002 HPV VACCINE (1 - 3-dose SCDM series) 2008 COVID-19 VACCINE ( - 2023-2 5 season) 2024 DEPRESSION SCREENING 12/01/2024 INFLUENZA VACCINE (#1) 2025 10/12/2014 ZOSTER VACCINE (1 of 2) 2031 HIB VACCINE Aged Out No longer eligi ble based on patient's age to complete this topic MENINGOCOCCAL (Group B) VACC INE SHARED DECISION-MAKING Aged Out No longer eligibl e based on patient's age to complete this topic MENINGOCOCCAL GROUPS A/C/Y/W VACCINE Aged Out No longer eligible b ased on patient's age to complete this topic
--- OUTSIDE RECORDS SUMMARY | 2025-07-11 23:15 | XMS_ITS | Clinical Summary ---
Author Organization [facility] Address [facility] [place] [address] Care Team Providers Care Director Process Name Role Phone None, Provider MD Primary Care Provider Unavaila ble Allergies No known active allergies Medications No known medications Active Problems Problem Noted Date Diagnosed Date Purposeful non-suicidal drug ingestion ([facility]) 06/03/2024 Social History Tobacco Use Types Packs/Day Years Used Date Smoking Tobacco: Every Day Cigarettes 0.5 1.6 Started: 2023 Smokeless Tobacco: Never Tobacco Cessation:Ready to Q uit: Not Asked; Counseling Given: Not Answered Alcohol Use Standard Drinks/Week Comments Never 0 (1 standard drink = 0.6 oz pur e alcohol) [facility] Utilities Answer Date Recorded In the past 12 months has e [employer], gas, oil, or water [employer] threatened to shut off services in your home? No 06/03/2024 Humiliation, Afraid, Rape, and Kick questionnair e Answer Date Recorded Within the last year, have y ou been afraid of your partner or ex-partner? No 06/03/2024 Within the last year, have y ou been humiliated or emotionally abused in other ways by your partner or ex-partner? No Within the last year, have y ou been kicked, hit, slapped, or otherwise physically hurt by your partner or ex-partner? No 06/03/2024 Within the last year, have y ou been raped or forced to have any kind of sexual activity by your partner or ex-partner? No 06/03/2024 Overall Financial Resource Strain (CARDIA) Answe r Date Recorded How hard is it for you to pa y for the very basics like food, housing, medical care, and heating? Not hard at all 06/03/2024 Hunger Vital Sign Answer Date Recorded Within the past 12 months, y ou worried that your food would run out before you got the money to buy more. Never true 06/03/20 24 Within the past 12 months, t he food you bought just didn't last and you didn't have money to get more. Never true 06/03/2024 PRAPARE - Transportation Answer Date Re corded In the past 12 months, has l ack of transportation kept you from medical appointments or from getting medications? No 03/2024 In the past 12 months, has l ack of transportation kept you from meetings, work, or from getting things needed for daily living? No 06/03/2024 Housing Stability Vital Sign Answer Carlos e Recorded In the last 12 months, was t here a time when you were not able to pay the mortgage or rent on time? No 06/03/2024 In the past 12 months, how m any times have you moved where you were living? 0 06/03/2024 At any time in the past 12 m [facility], were you homeless or living in a halfway (including now)? No 06/03/2024 Comments No Sex and Gender Information Value Date Recorded Sex Assigned at Not on file Legal Sex Female 11:58 PM CDT Gender Identity Not on file Sexual Orientation Not on file Last Filed Vital Signs Vital Sign Reading Time Taken Comments Blood Pressure 110/77 06/03/2024 11:46 AM CDT Pulse 86 06/03/2024 11:46 AM CDT Temperature 36.6 C (97.9 F) 06/03/2024 11:46 AM CDT Respiratory Rate 18 06/03/2024 7:54 AM CDT Oxygen Saturation 98% 06/03/2024 11:46 AM CDT Inhaled Oxygen Concentration - - Weight 64.1 kg (141 lb 5 oz) 06/03/2024 12:01 AM CDT Height 167.6 cm (5' 6) 06/03/2024 12:01 AM CDT Body Mass Index 22.81 06/03/2024 12:01 AM CDT Plan of Treatment Health Maintenance Due Date Last Done Comments Cervical Cancer Screening Pa p Smear (Age 30 to 64) Every 3 Years 1981 Annual Physical 1984 Hepatitis C 1999 Hepatitis B Vaccines (1 of 3 - 19+ 3-dose series) 2000 Pneumococcal Vaccine: Pediat rics (0 to 5 Years) and At-Risk Patients (6 to 49 Years) (1 of 2 - PCV) 2000 HPV Vaccines (1 - 3-dose SCD M series) 2008 Cervical Cancer Screening Pa p with HPV Testing (Age 30 to 64) Every 5 Years 2011 Cervical Cancer Screening with HPV 2011 Mammogram Screening 2021 COVID-19 Vaccine (1 - 2023-2 5 season) 2024 DTaP, Tdap and Td Vaccines ( 2 - Td or Tdap) 08/13/2029 08/13/2019 Meningococcal B Vaccine Aged Out No l onger eligible based on patient's age to complete this topic Meningococcal Vaccine Aged Out No nikki shahla eligible based on patient's age to complete this topic RSV Immunizations Under 20 Months Aged Out No longer eligible based on patient's age to complete this topic Insurance Advance Directives * Full Code (Latest Code Status on File) Date Activated Date Inactivated Comments 06/03/2024 3:21 AM 06/03/2024 6:31 PM Care Teams Director Process Relationship Specialty Start Date End Date None, Provider, MD PCP - General UNKNOWN PHYSICIAN SPECIALTY 06/03/24
--- OUTSIDE RECORDS SUMMARY | 2025-07-11 23:15 | XMS_ITS | Clinical Summary ---
Author Organization [facility] Address [address] [place] [address] Phone Care Team Providers Care Program Clerk Name Role Phone Provider, None Primary Care Provider Unavailabl e Allergies No known active allergies Medications Naltrexone (VIVITROL IM) by Intramuscular route. Active Active Problems No known active problems Social History Tobacco Use Types Packs/Day Years Used Date Smoking Tobacco: Every Day Smokeless Tobacco: Never Tobacco Cessation:Ready to Q uit: No Comments No Sex and Gender Information Value Date Recorded Sex Assigned at Not on file Legal Sex Female 3:30 PM CDT Gender Identity Not on file Sexual Orientation Not on file Last Filed Vital Signs Vital Sign Reading Time Taken Comments Blood Pressure 109/86 05/07/2019 3:54 PM CDT Pulse 96 05/07/2019 3:54 PM CDT Temperature 36.8 C (98.3 F) 05/07/2019 3:54 PM CDT Respiratory Rate 18 05/07/2019 3:54 PM CDT Oxygen Saturation 97% 05/07/2019 3:54 PM CDT Inhaled Oxygen Concentration - - Weight 54.4 kg (120 lb) 05/07/2019 3:54 PM CDT Height 170.2 cm (5' 7) 05/07/2019 3:54 PM CDT Body Mass Index 18.79 05/07/2019 3:54 PM CDT Plan of Treatment Health Maintenance Due Date Last Done Comments Hepatitis C Virus (HCV) Screening 1981 TdaP Immunization 1981 Hepatitis B Immunization (1 of 3 - 19+ 3-dose series) 2000 Pap Smear 2002 Human Papillomavirus (HPV) Immunization (1 - 3-dose SCDM series) 2008 Cervical Cancer Screening (CCS) 2011 HPV/Cotest 2011 SARS-COV-2 Immunization (2023- season) 2024 Influenza Immunization (#1) 2025 10/12/2014 Respiratory Syncytial Virus (RSV) Immunization (Adult) (1 - 1-dose 75+ series) 2056 Meningococcal Immunization (ACWY) Aged Out No longer eligible based on patient's age to complete this topic Pneumococcal Immunization Combined Aged Out No longer eligible based on patient's age to complete this topic Rotavirus Immunization Aged Out No lo nger eligible based on patient's age to complete this topic Care Teams Program Clerk Relationship Specialty Start Date End Date Provider, None [place] PCP - General 05/07/19
--- OUTSIDE RECORDS SUMMARY | 2025-07-11 23:15 | XMS_ITS | Patient Health Record ---
Author Organization [facility] Address [address] [place] [address] Care Team Providers Care Bias Cutting Machine Operator Name Role Phone Justin Tipton Primary Care Provider Reason For Referral No Information Medications Medication SIG (Take, Route, Fr equency, Duration) Notes Start Date End Date Status Vivitrol 380 MG 4 ml Intramuscular e very 28 days; Duration: 28 days 04/23/2019 Active Social History Tobacco Use: Social History Observation Description Date Details (start date - stop date) Current Smoker NA - NA Dont use, Tobacco Use/Smoking Question Answer Notes Are you a current smoker How often do you smoke cigarettes? every day How many cigarettes a day do you smoke? 6-10 How soon after you wake up do you smoke your fir st cigarette? after 60 minutes Are you interested in quitting? Not ready to vernon t Section Notes: Problems Problem Type SNOMED Code ICD Code Onset Dates Problem Status W/U Status Risk Notes Problem Opioid dependence (65101405) Opioid use disorder, severe, dependence (F11.20) Active confirmed Problem Opioid use disorder (5440494495) Opioid use disorder (F11.99) Active confirmed Plan Of Treatment No Information Insurance Providers Payer Name Payer Address Payer Phone Subscriber Number Group Number Insured Name Patient Relationship to Insured Coverage Start Date Coverage End Date [facility] Att Claims Department [address] [place] [address] [id number] Ethel Clark Self - patient is the insured 9 Medications Administered Medication Instructions Date of Administration Dosage Notes Vivitrol 04/23/2019 380 mg Build Automation Engineer: [employer]. Pt tolerated well. Educated pt to massage injection site for the next 2-3 day. Pt was given Vivitrol necklace and braclet. No side effects noted prior to discharge. Vivitrol 06/01/2019 380 mg Manfacturer: [employer] Pt tolerated well. She does not have questions or concerns at this time. Medical (General) History Medical History History ICD Code Opioid Use Disorder Surgical History Surgery Date(Month/Year) Breast Augmentation 2008 Hospitalization History Reason Date(Month/Year) Denies
[2025-07-11 23:47] VITALS: BP 122/87; PULSE 96; RESP 18; O2SAT 99
--- OUTSIDE RECORDS SUMMARY | 2025-07-12 01:28 | XMS_ITS | Clinical Summary ---
Author Organization [facility] Address [address] [place] [address] Phone Care Team Providers Care Spike Machine Heater Name Role Phone Provider, None Primary Care [...] age to complete this topic Care Teams Spike Machine Heater Relationship Specialty Start Date End Date Provider, None [place] PCP - General 05/07/19
--- OUTSIDE RECORDS SUMMARY | 2025-07-12 01:28 | XMS_ITS | Clinical Summary ---
Author Organization [facility] Address [address] [place] [address] Care Team Providers Care Automated Logistics Specialist Name Role Phone Unavailable Primary Care Provider Unavailabl e Source Comments [facility],non-owned Affiliates and Associated Physician Practices is amultiple site organization consisting of ambulatory clinics and hospital sitesin [place], [place], [place] and [place]. This disclosure is being madepursuant to the Care Everywhere program and may not contain all information available regarding this patient. Last updated 18.Palmer [facility] Allergies No known active allergies Active Problems [...] on file Legal Sex Female 6:35 PM MAINTENANCE PARTS TECHNICIAN Gender Identity Not on file Sexual Orientation [...]
--- OUTSIDE RECORDS SUMMARY | 2025-07-12 01:28 | XMS_ITS | Clinical Summary ---
Author Organization [facility] Address [facility] [place] [address] Care Team Providers Care Suit Attendant Name Role Phone None, Provider MD Primary Care Provider Unavaila ble Allergies No known active allergies Medications No known medications Active Problems Problem Noted Date Diagnosed Date Purposeful non-suicidal drug ingestion ([facility]) 06/03/2024 Social History Tobacco Use Types Packs/Day Years Used Date Smoking Tobacco: Every Day Cigarettes 0.5 1.6 Started: 2023 Smokeless Tobacco: Never Tobacco Cessation:Ready to Q uit: Not Asked; Counseling Given: Not Answered Alcohol Use Standard Drinks/Week Comments Never 0 (1 standard drink = 0.6 oz pur e alcohol) [facility] Utilities Answer Date Recorded In the past 12 months has e [employer], gas, oil, or water [employer] threatened to shut off services in your [...] any time in the past 12 m [facility], were you homeless or living in a [facility] (including now)? No 06/03/2024 Comments No Sex [...] 3:21 AM 06/03/2024 6:31 PM Care Teams Suit Attendant Relationship Specialty Start Date End Date None, Provider, MD PCP - General UNKNOWN PHYSICIAN SPECIALTY 06/03/24
[2025-07-12] MEDS: KETOROLAC (*BKC) 60 MG/2 ML VIAL IM (01:46)
--- NOTE | 2025-07-12 01:58 | ED_ITS ---
HPI - Animal Bite General Chief Complaint: Animal Bite Stated Complaint: dog bite Time Seen by Provider: 07/12/25 01:07 Source: patient Mode of arrival: ambulatory Limitations: no limitations History of Present Illness HPI narrative: Patient is a 44-year-old female who presents the ED with report of dog bite to her right forearm. Patient reports she was bit by her friend's puppy in her right 4. Sustained wounds to ventral and dorsal forearm. Denies any other injuries. Is unsure dog is up-to-date on its vaccines, but states it was acting normally. Denies numbness. Tetanus is up-to-date. Related Data Home Medications ?Medication ?Instructions ?Recorded ?Confirmed ?Last Taken ?Type multivit-iron 18 mg-folic acid 400 1 tablet PO DAILY 05/27/22 05/29/22 05/26/22 History mcg-calcium 500 mg-minerals tablet (Daily Multiple For Women) Allergies Allergy/AdvReac Type Severity Reaction Status Date / Time No Known Allergies Allergy Verified 07/11/25 23:14 Review of Systems Review of Systems: All systems reviewed & are unremarkable except as noted in HPI. All systems reviewed & are unremarkable except as noted in HPI and below PMFSH Past Medical History Medical History Smoker Surgical History Surgical History H/O breast augmentation Social History Social History Smoking packs per day: 1 Smoking cigarettes per day: 20.0 Years smoked: 10 Smoking pack-years: 10.00 Smoking status: Current every day smoker Tobacco type: cigarettes Additional smoking assessment comments: 1/2 PACK/DAY CURRENTLY Alcohol intake: former Alcohol use details: NO ALCOHOL X 10 YEARS AGO Substance use: former Substance use type: crack/cocaine Other substance usage details: occasional Last use: 2011 Living arrangements: with friend(s) Additional living arrangements comments: FRIEND Spiritual care concerns: No Exam Narrative: GENERAL: Well appearing, well-nourished, non-toxic, in no acute distress. HEAD: Normocephalic, atraumatic. RESPIRATORY: Airway patent, respirations nonlabored. CARDIOVASCULAR: Regular rate and rhythm. Radial pulses strong and easily palpable. MUSCULOSKELETAL: Moves all extremities. No gross deformities. SKIN: Warm, dry, normal color. Small puncture wounds to dorsal forearm with small amount of bleeding. Mild swelling and bruising surrounding. Small 0.25 cm puncture wound/laceration to ventral forearm, slightly gaping in nature. Subcutaneous tissue exposed. No active bleeding. Sensation intact throughout extremity. NEURO: A&O X3. Speech clear. Cranial nerves II-XII grossly intact. Steady gait. No ataxic movements. PSYCHIATRIC: Appropriate mood and affect. Normal interaction. Course Vital Signs Vital signs: Vital Signs Temperature 98 F 07/11/25 23:15 Pulse Rate 102 H 07/11/25 23:15 Respiratory Rate 16 07/11/25 23:15 Blood Pressure 141/96 H 07/11/25 23:15 Pulse Oximetry 99 07/11/25 23:15 Oxygen Delivery Room Air 07/11/25 23:15 Temperature 98 F 07/11/25 23:15 Pulse Rate 67 07/12/25 02:18 Respiratory Rate 18 07/12/25 02:18 Blood Pressure 117/72 07/12/25 02:18 Pulse Oximetry 99 07/12/25 02:18 Oxygen Delivery Room Air 07/11/25 23:47 Procedures Laceration Laceration 1: Date: 07/12/25 Time: 02:00 Site: upper extremity Side (If applicable): right Size (cm): 0.25 Description: linear Depth: simple, single layer Local Anesthetic: lidocaine 1% Amount of anesthesia used (mL): 2 Pre-repair: wound explored, irrigated and irrigated extensively ====== Skin Level ====== Skin layer closed with: nylon Size (cm): 4-0 Number of sutures: 1 Technique: simple, interrupted ====== Subcutaneous Layer ====== ====== Muscle Layer ====== ====== Tendon Layer ====== MDM - Animal Bite MDM Narrative Medical decision making narrative: X-ray of right forearm interpreted by myself without evidence of foreign body or fracture. Wounds were thoroughly irrigated and bandaged. Wound to ventral forearm was loosely approximated given gaping nature. Patient was given wound care instructions and strict return precautions. Tetanus up-to-date. Patient started on Augmentin. Discharged in stable condition. Medical Records Attestation: I reviewed the patient's medical records. Imaging Data Attestation: I personally reviewed and interpreted this imaging study as fo llows: My impression: XR R Forearm: no acute osseous abnormality or foreign body. Discharge Plan Discharge Clinical Impression: Dog bite of right forearm Patient Disposition: Home Condition: Stable Instructions: Antibiotic Form, Animal Bite (ED), Care For Your Stitches (ED) Additional Instructions: Take antibiotics as prescribed. Return to the ED or visit an urgent care or your PCP for follow-up and wound check/suture removal in 10 to 14 days. Wash wo unds with soap and water daily. Monitor for signs of infection. Keep bandaged if needed. Recommend ice to areas of pain, Tylenol and ibuprofen around the clock as needed for pain. Return to the ED if you experience uncontrolled bleeding, fever, chills, pus-like drainage, or redness/swelling/warmth surrounding the wound, as these could be signs of an infection. Patient Language: Luxembourgish Prescriptions: New amoxicillin-pot clavulanate 875-125 mg tablet 1 tablet PO Q12H 7 Days Qty: 14 0RF No Action Daily Multiple For Women 18 mg iron-400 mcg-500 mg Ca Tablet 1 tablet PO DAILY cyclobenzaprine 10 mg tablet 10 mg PO TID PRN (Reason: muscle spasm) Qty: 14 0RF Follow-up/Referrals: Leo Melchor MD [Primary Care Provider] - Time of Disposition: 02:23
[2025-07-12 02:18] VITALS: BP 117/72; PULSE 67; RESP 18; O2SAT 99
== END 2025-07-12 02:28 | disposition home or self-care (01) ==
PROVIDERS: Emergency Provider Physician Assistant; PCP Emergency Medicine
DX: S51.851A Open bite of right forearm, initial encounter (principal); F17.210 Nicotine dependence, cigarettes, uncomplicated; W54.0XXA Bitten by dog, initial encounter
CPT/HCPCS: 12001; 73090; 96372; 99283; A9270; J1885